=== PATIENT | female | born 1940 | race Caucasian/White ===

== ENCOUNTER 2023-01-30 12:22 | Outpatient (CLI) | payer MEDICARE, BC, SELFPAY ==
[2023-01-30] MEDS: TETRACAINE 0.5% OPHTH 1 DROP EYE-RIGHT ×3 (12:35→13:16)
[2023-01-30] MEDS: BRIMONIDINE TARTRATE 0.2% OPHTH 1 DROP EYE-RIGHT ×2 (12:36→13:25)
[2023-01-30 12:38] VITALS: BP 147/83; PULSE 83; RESP 16; O2SAT 96
--- NOTE | 2023-01-30 13:30 | W.PM.OPTPROC ---
Procedure Note Date of procedure: 01/30/23 Will [facility] bill your pro fee for this procedure?: Yes Procedure Description: SURGEON: Yelena Ch MD PREOPERATIVE DIAGNOSIS: Posterior capsular opacity, right eye POSTOPERATIVE DIAGNOSIS: Posterior capsular opacity, right eye PROCEDURE: YAG laser capsulotomy, right eye ANESTHESIA: Topical. ESTIMATED BLOOD LOSS: None PATHOLOGY SPECIMEN: None COMPLICATIONS: None INDICATIONS: See consult note for details. The risks, benefits and alternatives of the procedure were explained to the patient, who elected to proceed and signed informed consent to do so. PROCEDURE: The patient was brought to the pre-holding area where the right eye was identified as the operative eye. I placed my initials above this eye. The patient received 2 sets of 1 drop of 0.5% tetracaine and 1 drop of 1% tropicamide. They also received 1 drop of 0.2% brimonidine. They received 1 drop of 0.5% tetracaine immediately prior to bringing them back for the procedure. The patient was then brought to the procedure room where the right eye was again identified as the operative eye. A YAG Ulises capsulotomy lens was placed on the eye. The laser was administered using a total number of 7 shots with an energy of 2.4 mJ per shot for a total energy of 17 mJ. The patient tolerated the procedure well. Lens appeared to have some intrinsic opacification DISPOSITION: The patient was taken back to the pre-holding area and given 1 drop of 0.2% brimonidine in the right eye. They were discharged to home in stable condition. The patient was instructed to call me or go to the emergency department with any sudden change, including dramatic loss of vision, severe pain in the eye or eyebrow region, nausea, or vomiting. The patient was instructed to use the 0.2% brimonidine 1 drop 2 times a day in the right eye for 1 week. The patient will follow up in the clinic in 1-2 weeks.
== END 2023-01-30 13:26 | disposition home or self-care (01) ==
LOC: EYE PRC 12:23
PROVIDERS: PCP Surgery; Visit Provider Ophthalmology
DX: H26.9 Unspecified cataract (principal)
CPT/HCPCS: 66821; A9270

== ENCOUNTER 2023-06-27 08:52 | Outpatient (CLI) | payer MEDICARE, BC, SELFPAY ==
--- NOTE | 2023-06-27 09:15 | CRLHL7_ITS ---
For Patients: As a result of the Century Cures Act, medical imaging exams and procedure reports are released immediately into your electronic medical record. You may view this report before your referring provider. If you have questions, please contact your health care provider. ULTRASOUND-GUIDED BREAST BIOPSY OF TWO OR MORE SITES AND POST-BIOPSY DIGITAL MAMMOGRAM FOR BIOPSY MARKER PLACEMENT CLINICAL HISTORY: LEFT breast mass. The appearance of the LEFT retroareolar mass appears slightly different given differences in equipment. Additionally, there is a small indeterminate 6 o???clock retroareolar hypoechoic round mass also seen measuring 0.4 x 0.3 x 0.3 cm. This will be biopsied as well. COMPARISON STUDIES: Ultrasound 06/17/2023. TECHNIQUE: Real-time ultrasound with image documentation was used for targeting the breast lesions. Core biopsy specimens were obtained using an automated gun with a 14-gauge biopsy needle. Post-biopsy CC and ML digital mammograms were obtained to document position of the biopsy marker. CONSENT and TIME OUT: The procedure, risks, and alternatives were explained to the patient and a consent was signed. [place] Protocol was followed including pre-procedure verification that relevant information/documentation was available, reviewed and properly matched to the patient; consent accurate and complete; and equipment and supplies available. Time Out was conducted just prior to starting procedure to verify the four required elements: patient identity, correct side/site marked (if applicable), procedure, relevant images/results properly labeled and displayed (if applicable). PROCEDURE: All biopsies were performed in a similar manner. The patient was positioned supine on the ultrasound table. The breast was prepped with Betadine or ChloraPrep. 10 cc of 1% lidocaine was injected for superficial and deeper anesthesia. Core samples were obtained. A sterile metal biopsy clip was placed percutaneously to ray the lesion position within the breast. The specimens were placed in 10% formalin and sent to the pathology department. Pressure was held on the biopsy site until all bleeding subsided. The skin incision was closed with Steri-Strips. An ice pack was positioned over the biopsy site. Post-biopsy instructions were reviewed with the patient, and a written copy was given to her. SITE A: LATERALITY: LEFT LESION: LEFT breast 6 o???clock retroareolar, 0.4 x 0.3 x 0.3 cm hypoechoic circumscribed mass. SUSPICION: Low. NUMBER OF SAMPLES: 3. BIOPSY CLIP SHAPE: Q. PROXIMITY OF CLIP TO TARGET: On target. SITE B: LATERALITY: LEFT. LESION: LEFT breast 12 o???clock retroareolar hypoechoic mass measuring 0.7 x 0.7 x 1.0 cm. SUSPICION: Intermediate. NUMBER OF SAMPLES: 5. BIOPSY CLIP SHAPE: HydroMARK. PROXIMITY OF CLIP TO TARGET: On target. IMPRESSION: Ultrasound-guided breast biopsy of two or more sites. When the pathology report is available, an addendum to this report will be made. ACR not applicable Jyotsna Campos M.D. Diagnostic/Breast Radiologist [email or web address] TKP/mili garces/Dictated by: Jyotsna Campos MD @ 06/27/2023 11:14:00 AM (Electronically Signed)
--- NOTE | 2023-06-27 10:00 | CRLHL7_ITS ---
For Patients: As a result of the Cures Act, medical imaging exams and procedure reports are released immediately into your electronic medical record. You may view this report before your referring provider. If you have questions, please contact your health care provider. PLEASE SEE ULTRASOUND-GUIDED LEFT BIOPSY PERFORMED SAME DAY CRL:mili garces/Dictated by: Jyotsna Campos MD @ 06/27/2023 12:08:00 PM (Electronically Signed)
== END 2023-06-27 08:53 | disposition home or self-care (01) ==
LOC: US 08:52
PROVIDERS: PCP Surgery; Visit Provider Surgery
DX: N63.20 Unspecified lump in the left breast, unspecified quadrant (principal); R92.8 Other abnormal and inconclusive findings on diagnostic imaging of breast
CPT/HCPCS: 19083; 19084; 77065; 88305; A4648; A4649

== ENCOUNTER 2023-10-08 16:30 | Inpatient (IN) | payer MEDICARE, BC, SELFPAY ==
[2023-10-08 16:45] VITALS: BP 117/66; PULSE 70; PULSE 73; RESP 16; TEMP 37.1; O2SAT 94; BMI 37.7
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
[2023-10-08 18:12] LABS: Chloride* 112 mmol/L (96-114); Sodium* 142 mmol/L (135-149)
[2023-10-08 18:15] LABS: Anion Gap 10 mEq/L (7-15); Blood Urea Nitrogen* 16 mg/dL (7-30); Carbon Dioxide* 20 mmol/L (20-32); Creatinine* 0.7 mg/dL (0.5-1.5); Est. Creatinine Clearance* 33.29; Estimated Glomerular Filt Rate 87 ml/min
[2023-10-08 18:16] LABS: Calcium* 7.8 mg/dL (8.4-10.6); Glucose* 130 mg/dL (60-115)
[2023-10-08] MEDS: LACTATED RINGERS 500 ML 500 ML IV ×2 (18:19→19:23)
[2023-10-08 18:41] LABS: C.Difficile Negative (Negative); CDIFFEPI 027 PRESUMPTIVE NEGATIVE (Negative)
--- NOTE | 2023-10-08 18:57 | PC.NURSE ---
End of shift: Patient alert and oriented x4. Indp. in Room to BR. 94% on RA. Patient denies N/V/SOB or pain. Patient had 2 sm loose stools, C-Diff precautions in place pending results. Patient was a direct admit from [place], [address], 20 G in R AC- SL, 18 G in L AC-SL, and 22G in right wrist.
[2023-10-08] MEDS: POTASSIUM CHLORIDE 10 MEQ, LIDOCAINE 1 % 1 ML in 0.9 % SODIUM CHLORIDE 100 ml 100 ML 106 MEQ IVPB ×2 (20:18→23:11)
[2023-10-08 20:25] VITALS: BP 124/58; PULSE 75; PULSE 77; RESP 18; TEMP 36.4; O2SAT 95
[2023-10-08 21:00] VITALS: PULSE 69
[2023-10-08 21:22] LABS: Lactate* 3.4 mmol/L (0.5-1.9)
[2023-10-08] MEDS: ENOXAPARIN 40 MG/0.4 ML INJ SUBCUT (21:36)
[2023-10-08] MEDS: MONTELUKAST 10 MG TABLET PO (21:36)
[2023-10-08] MEDS: ATORVASTATIN 10 MG TABLET PO (21:36)
[2023-10-08] MEDS: ACETAMINOPHEN 325 MG TABLET PO (21:37)
[2023-10-08] MEDS: SODIUM CHLORIDE 0.9 % (FLUSH) 10 ML SYRINGE 5 ML IVF (21:39)
[2023-10-08] MEDS: metroNIDAZOLE 500 MG/100 ML PIGGYBACK 100 MG IVPB (21:39)
[2023-10-08] MEDS: POTASSIUM CHLORIDE 10 MEQ CAPSULE ER 20 MEQ PO (22:45)
[2023-10-08 22:59] LABS: Magnesium* 2.4 mg/dL (1.5-2.6)
[2023-10-08 23:00] VITALS: O2SAT 95
[2023-10-09] VITALS (9 sets, daily range): BP systolic 116–142; BP diastolic 58–78; PULSE 60–81; RESP 16–18; TEMP 36.3–37.5; O2SAT 92–95
[2023-10-09] MEDS: metroNIDAZOLE 500 MG/100 ML PIGGYBACK 100 MG IVPB (05:28)
[2023-10-09 06:53] LABS: Basophils Absolute Auto 0.02 K/uL (0.00-0.30); Basophils Percent Auto 0.4 % (0.0-3.0); Eosinophils Absolute Auto 0.08 K/uL (0.00-0.50); Eosinophils Percent Auto 1.6 % (0.0-7.0); Hematocrit 40.2 % (33.0-51.0); Hemoglobin* 12.7 gm/dL (12.0-16.0); Immature Granulocytes Abs Auto 0.03 K/uL (0.00-0.30); Immature Granulocytes Pct Auto 0.6 %; Lymphocytes Percent Auto 12.4 % (20-44); Mean Corpuscular HGB Conc 32 gm/dL (32-36); Mean Corpuscular Hemoglobin 28 pg (26-34); Mean Corpuscular Volume 90 fL (80-100); Platelet Count* 130 K/uL (140-440); RDW Coefficient of Variation % 15.3 % (11.5-15.5); Red Blood Count 4.47 m/uL (4.00-5.20); White Blood Count* 4.91 K/uL (4.50-11.00)
[2023-10-09 07:00] LABS: Slide Review Reflex Yes
[2023-10-09 07:01] LABS: Chloride* 111 mmol/L (96-114); Slide Review Acceptable Review (Acceptable)
[2023-10-09 07:02] LABS: Sodium* 138 mmol/L (135-149)
[2023-10-09 07:04] LABS: Creatinine* 0.7 mg/dL (0.5-1.5); Est. Creatinine Clearance* 33.29; Estimated Glomerular Filt Rate 87 ml/min
[2023-10-09 07:05] LABS: Anion Gap 7 mEq/L (7-15); Blood Urea Nitrogen* 13 mg/dL (7-30); Calcium* 7.8 mg/dL (8.4-10.6); Carbon Dioxide* 20 mmol/L (20-32); Glucose* 119 mg/dL (60-115)
--- NOTE | 2023-10-09 07:48 | PC.NURSE ---
Pt with stable VS. Up with SBA to I . She has had 2 loose stools in 12hrs. Urinating without problems.
[2023-10-09] MEDS: POTASSIUM BICARB 25 MEQ EFFERVESCENT TAB PO ×2 (09:03→12:06)
[2023-10-09] MEDS: METOPROLOL SUCCINATE (XL) 50 MG TAB PO (09:03)
[2023-10-09] MEDS: POTASSIUM CHLORIDE 10 MEQ CAPSULE ER 20 MEQ PO ×2 (09:03→18:01)
[2023-10-09] MEDS: LEVOTHYROXINE 100 MCG TABLET PO (09:04)
[2023-10-09] MEDS: OMEPRAZOLE 20 MG CAPSULE DR 40 MG PO (09:04)
[2023-10-09] MEDS: SODIUM CHLORIDE 0.9 % (FLUSH) 10 ML SYRINGE 5 ML IVF ×2 (09:05→21:55)
[2023-10-09] MEDS: MAGNESIUM OXIDE 400 MG TABLET PO (09:05)
[2023-10-09 10:35] LABS: Lab Add On Test New Spec Needed
--- NOTE | 2023-10-09 13:35 | P.IMPN_ITS ---
Progress Note: A&P Assessment and plan (1) Enterocolitis: Problem details: Clinically and radiographically appears to have enterocolitis. Most likely due to a viral illness, possibly from grandchildren. Clinically modestly improved. C diff test is negative. Anticipate resolution of illness without specific therapy. Antibiotics discontinued Status: Acute (2) Atrial fibrillation with RVR: Problem details: - new AFib was brief and has now resolved. - seen in ER in [place] 10/08/23, resolved with IV diltiazem and magnesium within a few hours and has not returned. Monitor on tele. As this episode was brief episode of AFib associated with hypo magnesemia and hypokalemia that spontaneously resolved I am going to defer further evaluation and management to the outpatient setting. While this is not definitive. Patient has not noted any episodes of tachycardia on her Apple watch. I discussed with patient the risks and benefits of anticoagulation. At this point I am recommending anticoagulation if any ongoing evidence of atrial fibrillation. Status: Acute (3) Hypokalemia due to excessive gastrointestinal loss of potassium: Problem details: - Patient has a long history of hypokalemia and wonders if it is possibly genetic as her daughter also has trouble with this. Notably she is on chlorthalidone which has likely contributed to hypokalemia, especially in the setting of profuse watery diarrhea, GI loss of potassium. - as patient is still somewhat nauseous, I do not think she will do well with oral replacement, so I have ordered IV replacement and will recheck potassium in the morning. Status: Acute (4) Sepsis: Problem details: Patient met criteria for sepsis with tachycardia and elevated lactate. She received IV fluids and antibiotics on admission. Clinically improved. Continue to monitor without ongoing IV fluids and intravenous antibiotics Status: Acute Plan Continue in-hospital for monitoring of nausea vomiting and diarrhea, volume status, electrolytes, AFib with RVR. Anticipate discharge to home when able to tolerate adequate food and fluid and clinical improvement in diarrhea. 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 She was feeling fine, in her usual state of health, until the next evening, the day before admission. She started having recurrent episodes of nonbloody emesis. She had crampy abdominal pain. She had nonbloody diarrhea. For the last 24 hours she has not had any further vomiting though she has had a very poor appetite and still has quite a bit of nausea. She continues to have frequent large volume watery stools however. Because she was feeling quite ill she went to the emergency room in [place] yesterday. There she was found to also have tachycardia with a heart rate in the 150s. She checked her Apple watch and it also had recorded heart rate in the 140s and 150s during the day yesterday. Her rhythm was identified as atrial fibrillation. She was given intravenous diltiazem for rate control. She had spontaneous conversion back to sinus rhythm pending her way to transfer to [facility]. She has been in a sinus rhythm since that time. She has no history of AFib. She does have a history of SVT. Two years ago she had a Zio patch placed showing SVT and a some PVCs.. She had an echocardiogram showing left ventricular size and function was normal with an ejection fraction of 73%. Right ventricle was normal. She had left atrial enlargement. No significant valvular disease. Question of PFO. She had a nuclear stress test showing no significant myocardial ischemia or infarction. She was treated with metoprolol which suppressed PVCs. She denies having had any sick contacts that she knew of, but notes that her granddaughter, who was with her on Saturday, started throwing up this morning and her grandson, who was also with her on Saturday, Was with granddaughter and grandson on Saturday has been feeling very ill and nauseous today. CT abdomen and pelvis with IV contrast done in [place] ER results reviewed: Findings compatible with enterocolitis which may be infectious or inflammatory. Lower lobe mucous plugging and bronchiectasis. Hepatic steatosis. Labs from emergency department in [place]: INR 1.1. Lipase 27. Magnesium 1.8. TSH sensitive 0.9 (there are no parameters written for this test). PTT 32. I do not have printout for her other labs, the ER provider from [facility] reported to me that her lactate was initially 5.6 and after fluid bolus came down to 4.2. Troponin was 15 and their upper limit of normal is 10. Cardiology was consulted by phone from the emergency department and thought that this was demand ischemia. Anion gap 18. White count 14.3. Urinalysis wbc's 20-30. Creatinine 0.85. Stool panel stent out was pending. She sees Dr. Wong at [facility] for primary care. She had a stress test last year that she tells me was unremarkable. Her last colonoscopy was in [place] in 2019. She had a couple of polyps at that time and has been due for repeat, but tells me that Dr. Wong has been putting it off and she does not know exactly why. She also has a history of esophageal strictures for which she has had multiple dilatations in the past, most recently in 2013. She also has chronic hypokalemia. Since admission she reports persistent nausea with poor oral intake and ongoing significant watery diarrhea. She is not having significant abdominal pain. She has been in sinus rhythm without chest pain or dyspnea. She has had no fever. Exam Narrative: Exam Narrative: She is alert and appears in no obvious distress. She gives her own history. Oropharynx is normal. Neck is supple without mass or adenopathy. Respirations are clear to auscultation. Cardiovascular: S1, S2, regular rate and rhythm. No murmur gallop or rub. Abdomen: Bowel sounds are very active. Abdomen is soft without tenderness or mass. Extremities without significant edema support hose in place. Const: Vital Signs, click to edit/add: Vital Signs - 24 hr 10/08/23 16:45 10/08/23 16:45 10/08/23 16:45 Temperature 98.7 F Pulse Rate 73 Pulse Rate [Bilate ral] Pulse Rate [Pulse Oximeter] 70 Respiratory Rate 16 Blood Pressure [Ri ght Arm] 117/66 Pulse Oximetry 94 94 Oxygen Delivery Me thod Room Air Room Air 10/08/23 20:25 10/08/23 21:00 10/08/23 23:00 Temperature 97.6 F Pulse Rate 69 Pulse Rate [Bilate ral] 75 Pulse Rate [Pulse Oximeter] 77 Respiratory Rate 18 Blood Pressure [Ri ght Arm] 124/58 L Pulse Oximetry 95 95 Oxygen Delivery Me thod Room Air Room Air 10/09/23 03:00 10/09/23 08:27 10/09/23 08:27 Temperature 97.8 F 98.1 F Pulse Rate Pulse Rate [Bilate ral] Pulse Rate [Pulse Oximeter] 81 77 Respiratory Rate 18 18 18 Blood Pressure [Ri ght Arm] 142/58 H 116/78 Pulse Oximetry 92 95 95 Oxygen Delivery Me thod Room Air Room Air Room Air 10/09/23 08:39 10/09/23 12:04 Temperature 97.4 F L Pulse Rate 75 Pulse Rate [Bilate ral] Pulse Rate [Pulse Oximeter] 66 Respiratory Rate 16 Blood Pressure [Ri ght Arm] 126/62 Pulse Oximetry 95 Oxygen Delivery Me thod Room Air Documenting provider has reviewed patient's vital signs: yes Labs Labs: Laboratory Results - last 24 hr 10/08/23 10/08/23 10/08/23 17:20 17:29 17:55 WBC RBC Hgb Hct MCV MCH MCHC RDW Coeff of Cj Plt Count Neut % (Auto) Lymph % (Auto) [place] % (Auto) Eos % (Auto) Baso % (Auto) Neut # (Auto) Lymph # (Auto) [place] # (Auto) Eos # (Auto) Baso # (Auto) Abs Immat Gran (auto) Imm/Tot Granulo (auto) Diff Slide Review Sodium 142 Potassium 3.0 L Chloride 112 Carbon Dioxide 20 Anion Gap 10 BUN 16 Creatinine 0.7 Estimated Creat Clear 33.29 Estimated GFR 87 Glucose 130 H Lactate 3.0 H Calcium 7.8 L Magnesium 2.4 Lactate Dehydrogenase Cancelled TSH Stl C. diff Tox B Gene Negative Stl C. diff [id number]-NAP1-BI PRESUMPTIVE NEGATIVE Lab Acknowledgement 10/08/23 10/08/23 10/09/23 19:22 21:00 06:31 WBC 4.91 RBC 4.47 Hgb 12.7 Hct 40.2 MCV 90 MCH 28 MCHC 32 RDW Coeff of Cj 15.3 Plt Count 130 L Neut % (Auto) 75.0 H Lymph % (Auto) 12.4 L [place] % (Auto) 10.0 Eos % (Auto) 1.6 Baso % (Auto) 0.4 Neut # (Auto) 3.70 Lymph # (Auto) 0.60 L [place] # (Auto) 0.50 Eos # (Auto) 0.08 Baso # (Auto) 0.02 Abs Immat Gran (auto) 0.03 Imm/Tot Granulo (auto) 0.6 Diff Slide Review Acceptable Review Sodium 138 Potassium 3.0 L Chloride 111 Carbon Dioxide 20 Anion Gap 7 BUN 13 Creatinine 0.7 Estimated Creat Clear 33.29 Estimated GFR 87 Glucose 119 H Lactate 3.4 H Calcium 7.8 L Magnesium Lactate Dehydrogenase TSH Stl C. diff Tox B Gene Stl C. diff NAP1-BI Lab Acknowledgement Test Added 10/09/23 10/09/23 10:33 11:48 WBC RBC Hgb Hct MCV MCH MCHC RDW Coeff of Cj Plt Count Neut % (Auto) Lymph % (Auto) [place] % (Auto) Eos % (Auto) Baso % (Auto) Neut # (Auto) Lymph # (Auto) [place] # (Auto) Eos # (Auto) Baso # (Auto) Abs Immat Gran (auto) Imm/Tot Granulo (auto) Diff Slide Review Sodium Potassium Chloride Carbon Dioxide Anion Gap BUN Creatinine Estimated Creat Clear Estimated GFR Glucose Lactate Calcium Magnesium Lactate Dehydrogenase TSH 1.050 Stl C. diff Tox B Gene Stl C. diff NAP1-BI Lab Acknowledgement New Spec Needed
[2023-10-09] MEDS: ACETAMINOPHEN 325 MG TABLET PO (21:53)
[2023-10-09] MEDS: MONTELUKAST 10 MG TABLET PO (21:53)
[2023-10-09] MEDS: ENOXAPARIN 40 MG/0.4 ML INJ SUBCUT (21:54)
[2023-10-09] MEDS: ATORVASTATIN 10 MG TABLET PO (21:54)
[2023-10-10] VITALS (7 sets, daily range): BP systolic 142–164; BP diastolic 59–93; PULSE 57–77; RESP 16–18; TEMP 36.2–37.2; O2SAT 91–96
[2023-10-10] MEDS: ONDANSETRON 2 MG/ML inj 4 MG IVP ×2 (00:08→13:46)
[2023-10-10] MEDS: OMEPRAZOLE 20 MG CAPSULE DR 40 MG PO (06:02)
[2023-10-10] MEDS: LEVOTHYROXINE 100 MCG TABLET PO (06:02)
--- NOTE | 2023-10-10 06:35 | PC.NURSE ---
End of shift [id number]: A&O pleasant and cooperative.VSS w/sats >90% on RA. Denies pain. x2 loose stool. Pt reported one episode of nausea. Zofran given with stated relief. Pt had an uneventful night and appeared to rest comfortably. ?
[2023-10-10 06:52] LABS: Chloride* 104 mmol/L (96-114); Potassium* 3.2 mmol/L (3.6-5.1); Sodium* 138 mmol/L (135-149)
[2023-10-10 06:55] LABS: Anion Gap 7 mEq/L (7-15); Blood Urea Nitrogen* 11 mg/dL (7-30); Carbon Dioxide* 27 mmol/L (20-32); Creatinine* 0.8 mg/dL (0.5-1.5); Est. Creatinine Clearance* 33.29; Estimated Glomerular Filt Rate 74 ml/min; Glucose* 111 mg/dL (60-115)
[2023-10-10 06:56] LABS: Calcium* 8.3 mg/dL (8.4-10.6)
[2023-10-10] MEDS: POTASSIUM CHLORIDE 10 MEQ CAPSULE ER 20 MEQ PO ×2 (08:29→18:23)
[2023-10-10] MEDS: POTASSIUM BICARB 25 MEQ EFFERVESCENT TAB 50 MEQ PO ×2 (08:29→10:19)
[2023-10-10] MEDS: MAGNESIUM OXIDE 400 MG TABLET PO (08:30)
[2023-10-10] MEDS: METOPROLOL SUCCINATE (XL) 50 MG TAB PO (08:30)
[2023-10-10] MEDS: SODIUM CHLORIDE 0.9 % (FLUSH) 10 ML SYRINGE 5 ML IVF ×2 (08:30→20:49)
[2023-10-10] MEDS: SPIRONOLACTONE 25 MG TABLET PO (08:30)
--- NOTE | 2023-10-10 10:23 | P.IMPN_ITS ---
Progress Note: A&P Assessment and plan (1) Enterocolitis: Problem details: Clinically and radiographically appears to have enterocolitis. Most likely due to a viral illness, possibly from grandchildren. Clinically modestly improved. C diff test is negative. Anticipate resolution of illness without specific therapy. Antibiotics discontinued. Several other family members have developed gastroenteritis in the last day. Status: Acute (2) Atrial fibrillation with RVR: Problem details: - new AFib was brief and has now resolved. - seen in ER in [place] 10/08/23, resolved with IV diltiazem and magnesium within a few hours and has not returned. Monitor on tele. As this episode was brief episode of AFib associated with hypo magnesemia and hypokalemia that spontaneously resolved I am going to defer further evaluation and management to the outpatient setting. While this is not definitive. Patient has not noted any episodes of tachycardia on her Apple watch. I discussed with patient the risks and benefits of anticoagulation. At this point I am recommending anticoagulation if any ongoing evidence of atrial fibrillation. Status: Acute (3) Hypokalemia due to excessive gastrointestinal loss of potassium: Problem details: - Patient has a long history of hypokalemia and wonders if it is possibly genetic as her daughter also has trouble with this. Notably she is on chlorthalidone which has likely contributed to hypokalemia, especially in the setting of profuse watery diarrhea, GI loss of potassium. Hold chlorthalidone. Continue to replace potassium. Plasma aldosterone and renin in levels obtained this morning. Results pending. Will now start spironolactone. Status: Acute (4) Sepsis: Problem details: Patient met criteria for sepsis with tachycardia and elevated lactate. She received IV fluids and antibiotics on admission. Clinically improved. Continue to monitor without ongoing IV fluids and intravenous antibiotics Status: Acute Plan Continue in hospital until patient able to establish that she can maintain p.o. food and fluid in excessive output from diarrhea. Continue to replace and monitor potassium. 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 She was feeling fine, in her usual state of health, until the next evening, the day before admission. She started having recurrent episodes of nonbloody emesis. She had crampy abdominal pain. She had nonbloody diarrhea. For the last 24 hours she has not had any further vomiting though she has had a very poor appetite and still has quite a bit of nausea. She continues to have frequent large volume watery stools however. Because she was feeling quite ill she went to the emergency room in [place] yesterday. There she was found to also have tachycardia with a heart rate in the 150s. She checked her Apple watch and it also had recorded heart rate in the 140s and 150s during the day yesterday. Her rhythm was identified as atrial fibrillation. She was given intravenous diltiazem for rate control. She had spontaneous conversion back to sinus rhythm pending her way to transfer to [facility]. She has been in a sinus rhythm since that time. She has no history of AFib. She does have a history of SVT. Two years ago she had a Zio patch placed showing SVT and a some PVCs.. She had an echocardiogram showing left ventricular size and function was normal with an ejection fraction of 73%. Right ventricle was normal. She had left atrial enlargement. No significant valvular disease. Question of PFO. She had a nuclear stress test showing no significant myocardial ischemia or infarction. She was treated with metoprolol which suppressed PVCs. She denies having had any sick contacts that she knew of, but notes that her granddaughter, who was with her on Saturday, started throwing up this morning and her grandson, who was also with her on Saturday, Was with granddaughter and grandson on Saturday has been feeling very ill and nauseous today. CT abdomen and pelvis with IV contrast done in [place] ER results reviewed: Findings compatible with enterocolitis which may be infectious or inflammatory. Lower lobe mucous plugging and bronchiectasis. Hepatic steatosis. Labs from emergency department in [place]: INR 1.1. Lipase 27. Magnesium 1.8. TSH sensitive 0.9 (there are no parameters written for this test). PTT 32. I do not have printout for her other labs, the ER provider from [facility] reported to me that her lactate was initially 5.6 and after fluid bolus came down to 4.2. Troponin was 15 and their upper limit of normal is 10. Cardiology was consulted by phone from the emergency department and thought that this was demand ischemia. Anion gap 18. White count 14.3. Urinalysis wbc's 20-30. Creatinine 0.85. Stool panel stent out was pending. She sees Dr. Wong at [facility] for primary care. She had a stress test last year that she tells me was unremarkable. Her last colonoscopy was in [place] in 2019. She had a couple of polyps at that time and has been due for repeat, but tells me that Dr. Wong has been putting it off and she does not know exactly why. She also has a history of esophageal strictures for which she has had multiple dilatations in the past, most recently in 2013. She also has chronic hypokalemia. October 08: Since admission she reports persistent nausea with poor oral intake and ongoing significant watery diarrhea. She is not having significant abdominal pain. She has been in sinus rhythm without chest pain or dyspnea. She has had no fever. October 09: Her diarrhea is getting better. She has not had any significant abdominal pain. No fever. She has tolerated some p.o. food and fluid. She is afraid to eat or drink more because it is making her diarrhea worse. Her potassium continues to be low. Exam Narrative: Exam Narrative: She is alert and appears in no distress. Respirations are clear to auscultation. Cardiovascular: S1, S2, regular rate and rhythm. Abdomen: Bowel sounds are present. Abdomen is soft without tenderness or mass. Extremities without edema. Const: Vital Signs, click to edit/add: Vital Signs - 24 hr 10/09/23 12:04 10/09/23 16:31 10/09/23 16:31 Temperature 97.4 F L 99.5 F Pulse Rate Pulse Rate [Bilate ral] Pulse Rate [Pulse Oximeter] 66 66 Respiratory Rate 16 18 Blood Pressure [Ri ght Arm] 126/62 128/59 L Pulse Oximetry 95 93 92 Oxygen Delivery Me thod Room Air Room Air Room Air 10/09/23 16:59 10/09/23 20:19 10/09/23 23:25 Temperature 98.1 F Pulse Rate 75 60 Pulse Rate [Bilate ral] 63 Pulse Rate [Pulse Oximeter] Respiratory Rate 18 Blood Pressure [Ri ght Arm] 125/64 Pulse Oximetry Oxygen Delivery Me thod 10/09/23 23:59 10/10/23 00:05 10/10/23 02:58 Temperature 97.6 F 97.1 F L Pulse Rate Pulse Rate [Bilate ral] Pulse Rate [Pulse Oximeter] 63 60 Respiratory Rate 16 16 16 Blood Pressure [Ri ght Arm] 125/58 L 145/70 H Pulse Oximetry 93 93 91 Oxygen Delivery [place] thod Room Air Room Air Room Air 10/10/23 07:00 10/10/23 07:00 10/10/23 08:00 Temperature 97.5 F L Pulse Rate 57 L Pulse Rate [Bilate ral] Pulse Rate [Pulse Oximeter] 60 Respiratory Rate 18 18 Blood Pressure [Ri ght Arm] 164/93 H Pulse Oximetry 95 96 Oxygen Delivery [place] thod Room Air Room Air Documenting provider has reviewed patient's vital signs: yes Labs Labs: Laboratory Results - last 24 hr 10/09/23 10/09/23 10/10/23 10:33 11:48 06:22 Sodium 138 Potassium 3.2 L Chloride 104 Carbon Dioxide 27 Anion Gap 7 BUN 11 Creatinine 0.8 Estimated Creat Clear 33.29 Estimated GFR 74 Glucose 111 Calcium 8.3 L TSH 1.050 Lab Acknowledgement New Spec Needed
--- NOTE | 2023-10-10 15:02 | PC.NURSE ---
End of Shift: Enhanced precautions continue. Up ad vitaly as tolerated. No reports of pain this shift. Up 3 times due to loose stools but the patient refused Imodium for now. PRN zofran was given 1x for mild nausea after eating. No emesis after ADAT. Calls appropriately. Mildly hypertensive this shift. Spironolactone was started today due to low potassium. Potassium was replaced PO with liquid and potassium pills. Call light within reach. Tiffanie FLOYD BSN
[2023-10-10] MEDS: LOPERAMIDE HCL 2 MG CAPSULE PO ×2 (18:23→20:49)
[2023-10-10] MEDS: MONTELUKAST 10 MG TABLET PO (20:49)
[2023-10-10] MEDS: ACETAMINOPHEN 325 MG TABLET PO (20:50)
[2023-10-10] MEDS: ATORVASTATIN 10 MG TABLET PO (20:50)
[2023-10-10] MEDS: ENOXAPARIN 40 MG/0.4 ML INJ SUBCUT (20:50)
--- NOTE | 2023-10-10 22:26 | PC.NURSE ---
End of shift [id number]: Pt is A&O x4. VSS with exception to low-grade fever this evening T-max 99. PRN Tylenol given @ 2049. Pt is independent in her room. Urgent, frequent loose stools ongoing- pt agreed to take PRN Imodium this evening, x2 doses given last @ 2049. Pt took a shower this afternoon as she?s been having some stool incontinences not getting to the BR soon enough. PIV in right hand SL and C/D/I. Left arm restriction d/t lymph node biopsies done. TELE reads NSR with occasional PVC?s. Pt denies any nausea this afternoon. C/o slight headache which was relieved with Tylenol. ?
[2023-10-11 00:02] VITALS: PULSE 66
[2023-10-11 00:05] VITALS: BP 155/72; PULSE 60; RESP 18; TEMP 36.7; O2SAT 94
[2023-10-11 03:47] VITALS: PULSE 57; RESP 16
[2023-10-11 06:34] LABS: Chloride* 106 mmol/L (96-114); Potassium* 3.9 mmol/L (3.6-5.1); Sodium* 138 mmol/L (135-149)
[2023-10-11 06:37] LABS: Anion Gap 5 mEq/L (7-15); Carbon Dioxide* 27 mmol/L (20-32); Creatinine* 0.7 mg/dL (0.5-1.5); Est. Creatinine Clearance* 33.29; Estimated Glomerular Filt Rate 87 ml/min
[2023-10-11 06:38] LABS: Blood Urea Nitrogen* 11 mg/dL (7-30); Calcium* 8.5 mg/dL (8.4-10.6); Glucose* 115 mg/dL (60-115)
[2023-10-11] MEDS: OMEPRAZOLE 20 MG CAPSULE DR 40 MG PO (06:40)
[2023-10-11] MEDS: LEVOTHYROXINE 100 MCG TABLET PO (06:40)
[2023-10-11 07:00] VITALS: BP 202/90; PULSE 63; PULSE 73; RESP 16; TEMP 36.4; O2SAT 94
--- NOTE | 2023-10-11 07:52 | PC.NURSE ---
End of shift note: A&Ox3. Ambulates independently within room. left arm restriction with band in place. IV to R wrist SL. loose stool x2. Tele reads sinus arrhythmia. pt slept majority of night.
[2023-10-11] MEDS: POTASSIUM CHLORIDE 10 MEQ CAPSULE ER 20 MEQ PO (08:04)
[2023-10-11] MEDS: MAGNESIUM OXIDE 400 MG TABLET PO (09:08)
[2023-10-11] MEDS: LOSARTAN POTASSIUM 50 MG TABLET PO (09:09)
[2023-10-11] MEDS: SPIRONOLACTONE 25 MG TABLET PO (09:09)
[2023-10-11] MEDS: METOPROLOL SUCCINATE (XL) 50 MG TAB PO (09:09)
[2023-10-11] MEDS: SODIUM CHLORIDE 0.9 % (FLUSH) 10 ML SYRINGE 5 ML IVF (09:10)
--- NOTE | 2023-10-11 09:25 | P.DS_ITS ---
DS: Providers Provider Date Seen: 10/11/23 Date of admission: 10/08/23 16:30 Primary care physician: Nicolas Wong MD Admitting Clinician: Flores Laurent MD Attending Physician on discharge: Cuong Gray MD Date of Discharge: 10/11/23 DS: Diagnosis Discharge Diagnosis (1) Enterocolitis: Status: Acute Problem details: Clinically and radiographically appears to have enterocolitis. Most likely due to a viral illness, possibly from grandchildren. Multiple other family members have similar illness. Clinically modestly improved. C diff test is negative. On discharge still has some diarrhea but tolerating oral food and fluid well. (2) Sepsis: Status: Acute Problem details: Patient met criteria for sepsis with tachycardia and elevated lactate. She received IV fluids and antibiotics on admission. Clinically improved. Continue to monitor without ongoing IV fluids and intravenous antibiotics (3) Hypokalemia due to excessive gastrointestinal loss of potassium: Status: Acute Problem details: - Patient has a long history of hypokalemia and wonders if it is possibly genetic as her daughter also has trouble with this. Notably she is on chlorthalidone which has likely contributed to hypokalemia, especially in the setting of profuse watery diarrhea, GI loss of potassium. Hold chlorthalidone. Continue to replace potassium. Plasma aldosterone and renin in levels obtained this morning. Results pending. Will now start spironolactone. Close outpatient follow-up of pending labs and basic metabolic panel in 3-4 days (4) Atrial fibrillation with RVR: Status: Acute Problem details: - new AFib was brief and has now resolved. - seen in ER in [place] 10/08/23, resolved with IV diltiazem and magnesium within a few hours and has not returned. Monitor on tele. As this episode was brief episode of AFib associated with hypo magnesemia and hypokalemia that spontaneously resolved I am going to defer further evaluation and management to the outpatient setting. While this is not definitive. Patient has not noted any episodes of tachycardia on her Apple watch. I discussed with patient the risks and benefits of anticoagulation. At this point I am recommending anticoagulation if any ongoing evidence of atrial fibrillation. DS: Summary Hospital Course Hospital Course: Michelle Starr is a 83 year old female with h/o HTN, hypokalemia, CAD, paroxysmal SVT, and remote history of DVTs for which she is not on anticoagulation who was in her usual state of health on Saturday when she spent the day with her granddaughter and grandson and 50 other people. She was feeling fine, in her usual state of health, until the next evening, the day before admission. She started having recurrent episodes of nonbloody emesis. She had crampy abdominal pain. She had nonbloody diarrhea. For the last 24 hours she has not had any further vomiting though she has had a very poor appetite and still has quite a bit of nausea. She continues to have frequent large volume watery stools however. Because she was feeling quite ill she went to the emergency room in [place] yesterday. There she was found to also have tachycardia with a heart rate in the 150s. She checked her Apple watch and it also had recorded heart rate in the 140s and 150s during the day yesterday. Her rhythm was identified as atrial fibrillation. She was given intravenous diltiazem for rate control. She had spontaneous conversion back to sinus rhythm pending her way to transfer to [facility]. She has been in a sinus rhythm since that time. She has no history of AFib. She does have a history of SVT. Two years ago she had a Zio patch placed showing SVT and a some PVCs.. She had an echocardiogram showing left ventricular size and function was normal with an ejection fraction of 73%. Right ventricle was normal. She had left atrial enlargement. No significant valvular disease. Question of PFO. She had a nuclear stress test showing no significant myocardial ischemia or infarction. She was treated with metoprolol which suppressed PVCs. She denies having had any sick contacts that she knew of, but notes that her granddaughter, who was with her on Saturday, started throwing up this morning and her grandson, who was also with her on Saturday, Was with granddaughter and grandson on Saturday has been feeling very ill and nauseous today. CT abdomen and pelvis with IV contrast done in [place] ER results reviewed: Findings compatible with enterocolitis which may be infectious or inflammatory. Lower lobe mucous plugging and bronchiectasis. Hepatic steatosis. Labs from emergency department in [place]: INR 1.1. Lipase 27. Magnesium 1.8. TSH sensitive 0.9 (there are no parameters written for this test). PTT 32. I do not have printout for her other labs, the ER provider from [facility] reported to me that her lactate was initially 5.6 and after fluid bolus came down to 4.2. Troponin was 15 and their upper limit of normal is 10. Cardiology was consulted by phone from the emergency department and thought that this was demand ischemia. Anion gap 18. White count 14.3. Urinalysis wbc's 20-30. Creatinine 0.85. Stool panel stent out was pending. [facility]. She had a stress test last year that she tells me was unremarkable. Her last colonoscopy was in [place] in 2019. She had a couple of polyps at that time and has been due for repeat, but tells me that Dr. Wong has been putting it off and she does not know exactly why. She also has a history of esophageal strictures for which she has had multiple dilatations in the past, most recently in 2013. She also has chronic hypokalemia. October 08: Since admission she reports persistent nausea with poor oral intake and ongoing significant watery diarrhea. She is not having significant abdominal pain. She has been in sinus rhythm without chest pain or dyspnea. She has had no fever. October 09: Her diarrhea is getting better. She has not had any significant abdominal pain. No fever. She has tolerated some p.o. food and fluid. She is afraid to eat or drink more because it is making her diarrhea worse. Her potassium continues to be low. October 10: Diarrhea continues to improve. Now tolerating p.o. food and fluid quite well. Potassium is finally normal at 3.9 Status at Discharge Functional status at discharge: independent ambulation Overall status at discharge: patient is progressing back to baseline Time Spent with Patient Time attestation: Total time spent providing and/or coordinating discharge services: 35 minutes Time spent: Greater than 30 minutes Exam Narrative: Exam Narrative: She is alert and appears in no distress. Respirations are clear to auscultation. Cardiovascular: S1, S2, regular rate and rhythm. Abdomen: Bowel sounds active. Abdomen is soft without tenderness or mass. Extremities without edema. Const: Vital Signs, click to edit/add: Vital Signs - 24 hr 10/10/23 11:00 10/10/23 15:00 10/10/23 15:00 Temperature 97.8 F Pulse Rate 77 Pulse Rate [Pulse Oximeter] 61 63 Respiratory Rate 16 18 Blood Pressure [Ri ght Arm] 155/59 H Pulse Oximetry 96 Oxygen Delivery Me thod Room Air 10/10/23 15:00 10/10/23 15:00 10/10/23 19:00 Temperature 98.5 F 99 F Pulse Rate Pulse Rate [Pulse Oximeter] 63 77 Respiratory Rate 16 16 18 Blood Pressure [Ri ght Arm] 153/67 H 142/74 H Pulse Oximetry 95 95 95 Oxygen Delivery Sc thod Room Air Room Air Room Air 10/11/23 00:02 10/11/23 00:05 10/11/23 00:05 Temperature Pulse Rate 66 Pulse Rate [Pulse Oximeter] 60 Respiratory Rate 18 18 Blood Pressure [Ri ght Arm] Pulse Oximetry 94 Oxygen Delivery Sc thod Room Air 10/11/23 00:05 10/11/23 03:47 10/11/23 07:00 Temperature 98.1 F Pulse Rate 63 Pulse Rate [Pulse Oximeter] 60 57 L Respiratory Rate 18 16 Blood Pressure [Ri ght Arm] 155/72 H Pulse Oximetry 94 Oxygen Delivery Sc thod Room Air Room Air 10/11/23 07:00 10/11/23 07:00 10/11/23 07:00 Temperature 97.5 F L Pulse Rate Pulse Rate [Pulse Oximeter] 73 73 Respiratory Rate 16 16 16 Blood Pressure [Ri ght Arm] 202/90 H Pulse Oximetry 94 94 Oxygen Delivery Sc thod Room Air Room Air Documenting provider has reviewed patient's vital signs: yes DS: Data Data Completed and Pending Labs on day of discharge: Labs from last 24 hours 10/11/23 06:05 Sodium 138 Potassium 3.9 Chloride 106 Carbon Dioxide 27 Anion Gap 5 L BUN 11 Creatinine 0.7 Estimated Creat Clear 33.29 Estimated GFR 87 Glucose 115 Calcium 8.5 Discharge Plan Discharge Disposition: Home, Self-Care Date of Admission: 10/08/23 16:30 Attending Provider on Discharge: Sorin Gray Primary Care Provider: Nicolas Wong Condition: Improved Anticipated Discharge Date/Time: 10/11/23 11:00 Discharge Medications: New loperamide 2 mg Capsule 2 mg PO Q4H PRNQty: 30 0RF spironolactone 25 mg Tablet 25 mg PO DAILY Qty: 30 0RF Continued levothyroxine 100 mcg tablet 100 mcg PO DAILY atorvastatin 10 mg tablet 10 mg PO HS losartan 50 mg tablet 50 mg PO DAILY levocetirizine 5 mg tablet 5 mg PO HS metoprolol succinate 50 mg tablet extended release 24 hr 50 mg PO DAILY montelukast 10 mg tablet 10 mg PO HS potassium chloride [Klor-Con M20] 20 mEq tablet,ER particles/crystals 20 meq PO BID azelastine 137 mcg (0.1 %) aerosol,spray 2 spray INTRANASAL BID PRN budesonide 1 mg/2 mL suspension for nebulization 1 mg irrigation BID Rx Instructions: USE IN NASAL IRRIGATION omeprazole 40 mg capsule,delayed release(DR/EC) 40 mg PO DAILY olopatadine 0.2 % drops 1 drp ophthalmic (eye) DAILY PRN PreserVision AREDS-2 250-90-40-1 mg capsule 1 tab PO BID ascorbic acid (vitamin C) 500 mg capsule 500 mg PO DAILY zinc 50 mg tablet 50 mg PO DAILY benzonatate 100 mg capsule 100 mg PO TID PRN cholecalciferol (vitamin D3) 25 mcg (1,000 unit) capsule 25 mcg PO DAILY cinnamon bark [Cinnamon] 500 mg capsule 500 mg PO DAILY cranberry 400 mg capsule 400 mg PO DAILY Rx Instructions: administer with a meal echinacea 400 mg capsule 400 mg PO DAILY Rx Instructions: administer with meals magnesium 250 mg tablet 250 mg PO DAILY Discontinued chlorthalidone 25 mg tablet 25 mg PO DAILY Discharge Orders: Discharge Order (Routine); Ordered 10/11/23 Ordered By: Sorin Gray Activity Level: Activity as Tolerated Discharge Diet: Regular Follow Up Appointments: Nicolas Wong MD [Primary Care Provider] - (Follow-up in 3-4 days. Check basic metabolic panel in 3-4 days. Follow-up pending labs from [facility], plasma renin and plasma aldosterone.) Machelle Segovia MD [Staff Physician] - 10/15/23 1:25 pm ([facility] for follow up appointment @ 1:25pm. Labs will be done at [facility] on October 14 @ 12:45pm before follow up appointment.) [facility] Inst[facility]
--- NOTE | 2023-10-11 10:42 | PC.NURSE ---
Discharge: Patient alert and oriented x4. VSS. Tolerating a reg. diet. Patient denies N/V/SOB or pain. Patient Discharged today at 1010 to home accompanied by daughter. Patient's IV removed intact. Discharge instructions given and signed, patient verbalized understanding of instructions. Patient signed belongings sheet.
[2023-10-12 16:04] LABS: Renin Activity 0.6 ng/mL/hr
== END 2023-10-11 10:10 | disposition home or self-care (01) | DRG 391 ==
PROVIDERS: Family Medicine; Admitting Provider Family Medicine; PCP Surgery; Visit Provider Family Medicine
DX: K52.9 Noninfective gastroenteritis and colitis, unspecified (principal); A41.9 Sepsis, unspecified organism; E87.6 Hypokalemia; I48.91 Unspecified atrial fibrillation; E78.5 Hyperlipidemia, unspecified; I25.10 Atherosclerotic heart disease of native coronary artery without angina pectoris; I10 Essential (primary) hypertension
CPT/HCPCS: 36415; 80048; 82088; 83605; 83615; 83735; 84244; 84443; 85025; 87493; A9270; J1650; J1836; J2405; J3480; J7120

== ENCOUNTER 2023-12-29 16:05 | Emergency (ER) | payer MEDICARE, BC, SELFPAY ==
[2023-12-29 16:16] VITALS: BP 164/88; PULSE 86; RESP 18; TEMP 36; O2SAT 94; BMI 37.6
--- NOTE | 2023-12-29 17:51 | CRLHL7_ITS ---
For Patients: As a result of the Century Cures Act, medical imaging exams and procedure reports are released immediately into your electronic medical record. You may view this report before your referring provider. If you have questions, please contact your health care provider. INDICATION: Leg pain and swelling. TECHNIQUE: Ultrasound venous duplex lower left extremity. Compression venous exam was performed using hoff-scale, color Doppler, and spectral Doppler analysis. COMPARISON: None. FINDINGS: Deep veins: Sonographic imaging demonstrates the left common femoral, deep femoral, superficial femoral, popliteal, posterior tibial and the contralateral right common femoral veins to be fully compressible with normal color Doppler blood flow. Superficial veins: Greater saphenous vein is fully compressible. Incidental 3.1 centimeter popliteal fossa cyst. IMPRESSION: No left lower extremity DVT. Incidental 3.1 centimeter popliteal fossa cyst. Dictated by Ryan Martinez MD @ 12/29/2023 8:08:47 PM (Electronically Signed)
--- NOTE | 2023-12-29 18:21 | ED_ITS ---
HPI - General Adult General Date Seen: 12/29/23 Chief complaint: Extremity Pain/Injury, Lower Stated complaint: Left knee painful hard to walk Time Seen by Provider: 12/29/23 17:27 Source: patient Mode of arrival: ambulatory Limitations: no limitations History of Present Illness HPI narrative: Patient is an 83-year-old female presenting for left leg pain. She states this pain right behind her left knee as Reglan for the past week. Is mostly there when she walks. Has a history of blood clot and is concerned she could have another 1. Left leg is swollen compared to the right she says but that has been chronic since her previous DVT several years ago after a . Denies fevers, chills, weakness numbness. Is not aware of any injuries to the left knee. No other concerns noted. Denies chest pain, shortness of breath. Related Data Home Medications ?Medication ?Instructions ?Recorded ?Confirmed atorvastatin 10 mg tablet 10 mg PO HS 08/06/23 12/29/23 levocetirizine 5 mg tablet 5 mg PO HS 08/06/23 12/29/23 levothyroxine 100 mcg tablet 100 mcg PO DAILY 08/06/23 12/29/23 losartan 50 mg tablet 50 mg PO DAILY 08/06/23 12/29/23 metoprolol succinate 50 mg 100 mg PO DAILY 08/06/23 12/29/23 tablet,extended release 24 hr montelukast 10 mg tablet 10 mg PO HS 08/06/23 12/29/23 potassium chloride 20 mEq 20 meq PO BID 08/06/23 12/29/23 tablet,extended release(part/cryst) (Klor-Con M) ascorbic acid (vitamin C) 500 mg 500 mg PO DAILY 10/08/23 12/29/23 capsule azelastine 137 mcg (0.1 %) nasal 2 spray intranasal BID PRN 10/08/23 12/29/23 spray aerosol benzonatate 100 mg capsule 100 mg PO TID PRN 10/08/23 12/29/23 budesonide 1 mg/2 mL suspension 1 mg irrigation BID 10/08/23 12/29/23 for nebulization cholecalciferol (vitamin D3) 25 25 mcg PO DAILY 10/08/23 12/29/23 mcg (1,000 unit) capsule cinnamon bark 500 mg capsule 500 mg PO DAILY 10/08/23 12/29/23 (Cinnamon) cranberry 400 mg capsule 400 mg PO DAILY 10/08/23 12/29/23 echinacea 400 mg capsule 400 mg PO DAILY 10/08/23 12/29/23 magnesium 250 mg tablet 250 mg PO DAILY 10/08/23 12/29/23 olopatadine 0.2 % eye drops 1 drp ophthalmic (eye) DAILY PRN 10/08/23 12/29/23 omeprazole 40 mg capsule,delayed 40 mg PO DAILY 10/08/23 12/29/23 release vit C 250 mg-vit E 90 mg-zinc 40 1 tab PO BID 10/08/23 12/29/23 mg-copper 1 [id number] capsule (PreserVision AREDS-2) zinc 50 mg tablet 50 mg PO DAILY 10/08/23 12/29/23 Previous Rx's ?Medication ?Instructions ?Recorded spironolactone 25 mg tablet 25 mg PO DAILY #30 tabs 10/11/23 Allergies Allergy/AdvReac Type Severity Reaction Status Date / Time aspirin Allergy Severe Difficulty Verified 12/29/23 16:19 Breathing Penicillins Allergy Verified 12/29/23 16:19 Review of Systems Narrative: Pertinent systems reviewed and were negative unless stated in HPI [facility] Medical History (Updated 12/29/23 @ 18:58 by Nicolas Mendieta DO) Hemoglobin A1c less than 7.0% ?R73.09 - Other abnormal glucose (ICD-10) Paroxysmal SVT (supraventricular tachycardia) ?I47.10 - Supraventricular tachycardia, unspecified (ICD-10) Chronic sinusitis ?J32.9 - Chronic sinusitis, unspecified (ICD-10) Pulmonary nodule ?R91.1 - Solitary pulmonary nodule (ICD-10) Meningioma ?D32.9 - Benign neoplasm of meninges, unspecified (ICD-10) Hypokalemia ?E87.6 - Hypokalemia (ICD-10) DVT (deep venous thrombosis) ?I82.409 - Acute embolism and thrombosis of unspecified deep veins of unsp ecified lower extremity (ICD-10) Chronic urethral stricture Urinary frequency ?R35.0 - Frequency of micturition (ICD-10) Hyperlipidemia ?E78.5 - Hyperlipidemia, unspecified (ICD-10) Coronary artery disease ?I25.10 - Atherosclerotic heart disease of [place] coronary artery without angina pectoris (ICD-10) Carpal tunnel syndrome ?G56.00 - Carpal tunnel syndrome, unspecified upper limb (ICD-10) Hypertension ?I10 - Essential (primary) hypertension (ICD-10) Pneumonia ?J18.9 - Pneumonia, unspecified organism (ICD-10) Surgical History History of carpal tunnel release ?Z98.890 - Other specified postprocedural states (ICD-10) H/O dilation and curettage ?Z98.890 - Other specified postprocedural states (ICD-10) H/O section ?Z98.891 - History of uterine scar from previous surgery (ICD-10) History of nasal surgery ?Z98.890 - Other specified postprocedural states (ICD-10) H/O total knee replacement ?Z96.659 - Presence of unspecified artificial knee joint (ICD-10) History of thyroid surgery ?Z98.890 - Other specified postprocedural states (ICD-10) H/O: hysterectomy ?Z90.710 - Acquired absence of both cervix and uterus (ICD-10) History of appendectomy ?Z90.49 - Acquired absence of other specified parts of digestive tract (ICD- 10) History of tonsillectomy ?Z90.89 - Acquired absence of other organs (ICD-10) S/P right rotator cuff repair (03/11/18) ?Z98.890 - Other specified postprocedural states (ICD-10) History of YAG laser capsulotomy of lens of right eye (01/30/23) ?Z98.41 - Cataract extraction status, right eye (ICD-10) Family History (Updated 10/08/23 @ 18:15 by Flores Laurent MD) Mother Lung cancer Aunt Breast cancer Sister Breast cancer Father Alcohol dependence Social History (Updated 10/08/23 @ 18:53 by Flores Laurent MD) Narrative: Living alone, independently in senior apartment. Never smoked (parents smoked). 1 alcoholic drink per month. Denies recreational drugs. FULL CODE. What is your current living situation?: I presently have a place to live Problems where you live: no known problems Problems where you live details: No known problems In the past 12 months, utilities in danger of being shut off: no In past 12 months, lack of transportation kept you from medical appts, meetings, work, or getting things needed for daily living: no In the past 12 mos, have been you worried that your food would run out before you had money to buy more?: never true In the past 12 mos, the food you bought just didn't last and you didn't have money to buy more?: never true Highest level of school completed/degree received: some college, no degree Smoking Status: Never smoker Do you use any of these nicotine containing products: None Second hand tobacco smoke exposure: No How often do you have a drink containing alcohol: monthly or less How often do you have six or more drinks on one occasion: Never AUDIT-C Alcohol total score: 1 Non-prescribed substance use: denies use Caffeine: No (tea) How often does anyone, including family, friends and others, physically hurt you : never How often does anyone, including family, friends and others, insult or talk down to you: never How often does anyone, including family, friends and others, threaten you with harm: never How often does anyone, including family, friends and others, scream or curse at you: never service: No Exam Narrative: Exam Narrative: Const: Well-nourished, Well-developed, in mild distress Eyes: PERRL, no conjunctival injection, and symmetrical lids HENT: Atraumatic external nose and ears. Moist mucous membranes. CVS: Peripheral pulses 2+ and equal in all extremities RESP: Unlabored respiratory effort. Clear to auscultation bilaterally. Extremities: Left lower extremity slightly more swollen than the right with tenderness in left popliteal region laterally MSK:Extremities w/o deformity, Normal Active ROM Skin: Warm, Dry. No rashes or lesions. Neuro: Normal Muscle tone, No focal neurological deficits. Psych: Awake, Alert, & Oriented x3. Appropriate mood and affect. Const: Vital Signs, click to edit/add: Vital Signs - 24 hr 12/29/23 16:16 Temperature 96.8 F L Pulse Rate [Pulse Oximeter] 86 Respiratory Rate 18 Blood Pressure [Ri ght Upper Arm] 164/88 H Pulse Oximetry 94 Oxygen Delivery Me thod Room Air Course Vital Signs Vital signs: Initial Vital Signs Temperature 96.8 F L 12/29/23 16:16 Temperature Source Temporal Artery Scan 12/29/23 16:16 Pulse Rate 86 12/29/23 16:16 Respiratory Rate 18 12/29/23 16:16 Blood Pressure 164/88 H 12/29/23 16:16 Blood Pressure Mean 113 H 12/29/23 16:16 Blood Pressure Position Sitting 12/29/23 16:16 Pulse Oximetry 94 12/29/23 16:16 Oxygen Delivery Method Room Air 12/29/23 16:16 Vital Signs Temperature 96.8 F L 12/29/23 16:16 Pulse Rate 86 12/29/23 16:16 Respiratory Rate 18 12/29/23 16:16 Blood Pressure 164/88 H 12/29/23 16:16 Pulse Oximetry 94 12/29/23 16:16 Oxygen Delivery Method Room Air 12/29/23 16:16 Temperature 96.8 F L 12/29/23 16:16 Pulse Rate 86 12/29/23 16:16 Respiratory Rate 18 12/29/23 16:16 Blood Pressure 164/88 H 12/29/23 16:16 Pulse Oximetry 94 12/29/23 16:16 Oxygen Delivery Method Room Air 12/29/23 16:16 Medical Decision Making MDM Narrative Medical decision making narrative: Patient is an 83-year-old female presenting for left popliteal pain. Initial examination shows felt like it could be a Ayala's cyst but on my ultrasound I could not believe the safest was or not. Considering history of blood clots in the swollen leg I will do a ultrasound to rule out DVT. This was done preliminary read shows a small Ayala cyst in no blood clot. Patient will be discharged at this time and will follow-up with orthopedics if symptoms persist. We will call her with results of the ultrasound if it is different from the preliminary read. She is agreeable to this plan Final read is consistent with preliminary read Imaging Data Venous US: Attestation: I have reviewed the pertinent imaging results. Radiologist's impression: No left lower extremity DVT. Incidental 3.1 centimeter popliteal fossa cyst. Dictated by Ryan Martinez MD @ 12/29/2023 8:08:47 PM Discharge Plan Discharge Clinical Impression: Ayala cyst Qualifiers: Laterality: left Qualified Code(s): M71.22 - Synovial cyst of popliteal space [Ayala], left knee Patient Disposition: Home, Self-Care Condition: Stable Instructions: Ayala Cyst (ED) Additional Instructions: Preliminary read of the ultrasound shows a Ayala cyst and no DVT. We will call you if the final read is different from that. Return to emergency department for any new or worsening symptoms. If symptoms persist you can follow-up with your primary care provider or Orthopedics. You can call [facility] at [phone] to set up an appointment. Prescriptions: No Action levothyroxine 100 mcg tablet 100 mcg PO DAILY atorvastatin 10 mg tablet 10 mg PO HS losartan 50 mg tablet 50 mg PO DAILY levocetirizine 5 mg tablet 5 mg PO HS metoprolol succinate 50 mg tablet extended release 24 hr 100 mg PO DAILY montelukast 10 mg tablet 10 mg PO HS potassium chloride [Klor-Con M20] 20 mEq tablet,ER particles/crystals 20 meq PO BID Hold Instructions: on hold per pt because of water pill azelastine 137 mcg (0.1 %) aerosol,spray 2 spray INTRANASAL BID PRN budesonide 1 mg/2 mL suspension for nebulization 1 mg irrigation BID Rx Instructions: USE IN NASAL IRRIGATION omeprazole 40 mg capsule,delayed release(DR/EC) 40 mg PO DAILY olopatadine 0.2 % drops 1 drp ophthalmic (eye) DAILY PRN PreserVision AREDS-2 250-90-40-1 mg capsule 1 tab PO BID ascorbic acid (vitamin C) 500 mg capsule 500 mg PO DAILY zinc 50 mg tablet 50 mg PO DAILY benzonatate 100 mg capsule 100 mg PO TID PRN cholecalciferol (vitamin D3) 25 mcg (1,000 unit) capsule 25 mcg PO DAILY cinnamon bark [Cinnamon] 500 mg capsule 500 mg PO DAILY cranberry 400 mg capsule 400 mg PO DAILY Rx Instructions: administer with a meal echinacea 400 mg capsule 400 mg PO DAILY Rx Instructions: administer with meals magnesium 250 mg tablet 250 mg PO DAILY spironolactone 25 mg Tablet 25 mg PO DAILY Qty: 30 0RF Follow Up/Referrals: Nicolas Wong MD [Primary Care Provider] - Stand Alone Forms: [facility] Info Instructions
== END 2023-12-29 19:07 | disposition home or self-care (01) ==
PROVIDERS: Emergency Provider Student in an Organized Health Care Education/Training Program; PCP Surgery
DX: M71.22 Synovial cyst of popliteal space [Baker], left knee (principal); M79.662 Pain in left lower leg
CPT/HCPCS: 93971; 99282; 99283